=== PATIENT | female | born 1980 | race Asian ===

== ENCOUNTER 2020-06-02 15:35 | Emergency (ER) | payer OTHER ==
[~2020-06-02] VITALS: Ht 172.7 cm; Wt 116.6 kg
[2020-06-02 16:47] LABS: PLATELET COUNT 255 K/uL (152-353)
[2020-06-02 16:55] LABS: POTASSIUM 3.3 mmol/L (3.6-5.2)
[2020-06-02 18:30] VITALS: BP 128/74; TEMP 98.7
== END 2020-06-02 18:30 | disposition home or self-care (01) ==
LOC: ED 15:35
PROVIDERS: Emergency Medicine Emergency Medical Services
DX: U07.1 COVID-19 (principal)
CPT/HCPCS: 36415; 80053; 81000; 81025; 85027; 87502; 87635; 96360; 96365; 96375; 99284; J1100; U0003

== ENCOUNTER 2020-10-19 07:47 | Emergency (ER) | payer OTHER ==
[~2020-10-19] VITALS: Ht 172.7 cm; Wt 122.0 kg
[2020-10-19 07:53] VITALS: TEMP 97.1
[2020-10-19 09:00] LABS: PLATELET COUNT 247 K/uL (152-353)
[2020-10-19 09:08] LABS: POTASSIUM 3.6 mmol/L (3.6-5.2)
[2020-10-19 11:38] VITALS: BP 132/51
== END 2020-10-19 11:38 | disposition home or self-care (01) ==
LOC: ED 07:47
PROVIDERS: Family Medicine
DX: Z3A.01 Less than 8 weeks gestation of pregnancy (principal)
CPT/HCPCS: 80053; 81000; 84702; 85027; 99284

== ENCOUNTER 2020-12-26 11:29 | Emergency (ER) | payer OTHER | END 2020-12-26 14:45 | disposition home or self-care (01) | LOC: ED 11:29 | DX: R10.2 Pelvic and perineal pain (principal); Z3A.16 16 weeks gestation of pregnancy | CPT/HCPCS: 81000; 99284 ==

== ENCOUNTER 2021-02-18 15:48 | Emergency (ER) | payer OTHER ==
[~2021-02-18] VITALS: Ht 172.7 cm; Wt 116.6 kg
[2021-02-18 16:54] VITALS: BP 120/72; TEMP 98
== END 2021-02-18 16:54 | disposition home or self-care (01) ==
LOC: ED 15:48
DX: R11.2 Nausea with vomiting, unspecified (principal); Z33.1 Pregnant state, incidental
CPT/HCPCS: 99281

== ENCOUNTER 2021-10-03 10:14 | Emergency (ER) | payer OTHER ==
[~2021-10-03] VITALS: Ht 172.7 cm; Wt 99.8 kg
[2021-10-03] MEDS ORDERED: MEDROL DOSEPAK4 MG PO (11:01)
[2021-10-03 11:10] VITALS: BP 137/82; TEMP 98.9
== END 2021-10-03 11:10 | disposition home or self-care (01) ==
LOC: ED 10:14
DX: J30.1 Allergic rhinitis due to pollen (principal); R09.81 Nasal congestion
CPT/HCPCS: 96372; 99282; J1100

== ENCOUNTER 2022-05-14 08:42 | Emergency (ER) | payer OTHER ==
[~2022-05-14] VITALS: Ht 172.7 cm; Wt 120.2 kg
[~2022-05-14 08:42] MED LIST: MEDROL DOSEPAK4 MG PO
[2022-05-14 08:45] VITALS: BP 151/88; TEMP 98.5
== END 2022-05-14 10:17 | disposition home or self-care (01) ==
LOC: ED 08:42
DX: J20.9 Acute bronchitis, unspecified (principal); Z33.1 Pregnant state, incidental; Z20.822 Contact with and (suspected) exposure to COVID-19
CPT/HCPCS: 87502; 87635; 87651; 99283; U0003

== ENCOUNTER 2022-07-08 11:50 | Emergency (ER) | payer OTHER ==
[~2022-07-08] VITALS: Ht 172.7 cm; Wt 120.2 kg
[2022-07-08 11:53] VITALS: BP 129/63; TEMP 99.2
[2022-07-08 13:16] LABS: PLATELET COUNT 260 K/uL (152-353)
== END 2022-07-08 13:32 | disposition home or self-care (01) ==
LOC: ED 11:50
PROVIDERS: Family Medicine
DX: J32.8 Other chronic sinusitis (principal); R05.8 Other specified cough; Z33.1 Pregnant state, incidental
CPT/HCPCS: 36415; 81002; 85027; 99283